=== PATIENT | female | born 1985 | race Caucasian/White ===

== ENCOUNTER 2017-04-11 17:15 | Inpatient (IN) | payer OTHER ==
[~2017-04-11] VITALS: Ht 152.4 cm; Wt 50.8 kg
[~2017-04-11 17:15] MED LIST: DOXY100; SULF-154 PO
[2017-04-11 17:16] VITALS: BP 159/104; PULSE 94; RESP 20; TEMP 98.1; O2SAT 99
--- NOTE | 2017-04-11 18:09 | PD ---
HPI Chief Complaint: Psychiatric Symptoms Time Seen by Provider: 17:30 Travel History International Travel<30 days: No Contact w/Intl Traveler<30days: No Traveled to known affect area: No History of Present Illness HPI Patient is a 31-year-old female presenting to the emergency department voluntarily for psychiatric evaluation. Patient reports, increased anxiety, depression, suicidal ideations. She states that she purchased antifreeze and needles and attempted to inject it but got scared. Sister is present and states that she's had increased anger issues, increased anxiety, paranoia, hallucinations. Sister states that she had her last child 3 years ago she's had a downward trend of depression, anxiety. It is due to that the patient started using IV methamphetamines 8 months after her son was performed. Patient has been clean for several months now. She admits to feeling overwhelmed and anxious she reports sleeping outside of her home because she is too scared to be insight. She reports that she sees rats her home that she knows are not there. She was followed by [facility], they prescribed Adderall which since she has started taking it has increased her anxiety. She was also prescribed Risperdal which she does not like to take because if she doesn't fall asleep immediately exacerbates her symptoms. Patient had her children taken away DCF due to unsafe living conditions. Per her sister's report she started hoarding. PFSH Past Medical History Anxiety: Yes Depression: Yes Diminished Hearing: No : 4 Para: 3 Miscarriage: 0 : 1 Ectopic : No Ovarian Cysts: No Past Surgical History Surgical History: No Previous Surgery Social History Alcohol Use: No Tobacco Use: No Substance Use: Yes (CRYSTAL METH CLEAN FOR THE LAST 3 MONTHS. JUST DISCHARGED FROM TREATMENT CENTER) Allergies-Medications (Allergen,Severity, Reaction): Coded Allergies: No Known Allergies (Verified , 04/11/17) Reported Meds & Prescriptions Reported Meds & Active Scripts Active Septra Ds (Trimethoprim/Sulfamethoxazole) Tab 1 Tab PO BID 10 Days Reported Vibramycin 100 Mg Cap (Doxycycline Hyclate) 100 Mg Cap 100 Mg .XX Physical Exam Narrative GENERAL: An, well-developed, alert female. Appears anxious, in no acute distress. SKIN: Focused skin assessment warm/dry. HEAD: Atraumatic. Normocephalic. EYES: Pupils equal and round. No scleral icterus. No injection or drainage. ENT: No nasal bleeding or discharge. Mucous membranes pink and moist. NECK: Trachea midline. No JVD. CARDIOVASCULAR: Regular rate and rhythm. No murmur appreciated. RESPIRATORY: No accessory muscle use. Clear to auscultation. Breath sounds equal bilaterally. GASTROINTESTINAL: Abdomen soft, non-tender, nondistended. Hepatic and splenic margins not palpable. MUSCULOSKELETAL: No obvious deformities. No clubbing. No cyanosis. No edema. NEUROLOGICAL: Awake and alert. No obvious cranial nerve deficits. Motor grossly within normal limits. Normal speech. PSYCHIATRIC: Anxious mood and affect; insight and judgment normal. Data Data Last Documented VS Vital Signs Date Time Temp Pulse Resp B/P Pulse Ox O2 Delivery O2 Flow Rate FiO2 04/11/17 20:15 84 16 98 04/11/17 17:16 98.1 159/104 Orders Complete Blood Count With Diff (04/11/17 17:44) Comprehensive Metabolic Panel (04/11/17 17:44) Thyroid Stimulating Hormone (04/11/17 17:44) Urinalysis - C+S If Indicated (04/11/17 17:44) Ed Urine Pregnancytest Poc (04/11/17 17:44) Psych Screen (04/11/17 17:44) Drug Screen, Random Urine (04/11/17 17:44) Alcohol (Ethanol) (04/11/17 17:44) Salicylates (Aspirin) (04/11/17 17:44) Tylenol (Acetaminophen) (04/11/17 17:44) Free Thyroxine (T4) (04/11/17 17:44) Diet Regular Basic (04/11/17 Dinner) Labs Laboratory Tests Test 04/11/17 04/11/17 18:55 19:03 Urine Color LIGHT-YELLOW Urine Turbidity CLEAR Urine pH 6.5 Urine Specific [place] 1.005 Urine Protein NEG mg/dL Urine Glucose (UA) NEG mg/dL Urine Ketones NEG mg/dL Urine Occult Blood LARGE Urine Nitrite NEG Urine Bilirubin NEG Urine Urobilinogen LESS THAN 2.0 MG/DL Urine Leukocyte Esterase NEG Urine RBC 6 /hpf Urine WBC 3 /hpf Urine Squamous Epithelial 1 /hpf Cells Urine Amorphous Sediment RARE Urine Bacteria OCC /hpf Microscopic Urinalysis Comment CULT NOT INDICATED White Blood Count 5.7 TH/MM3 Red Blood Count 3.87 MIL/MM3 Hemoglobin 12.4 GM/DL Hematocrit 36.9 % Mean Corpuscular Volume 95.4 FL Mean Corpuscular Hemoglobin 32.1 PG Mean Corpuscular Hemoglobin 33.7 % Concent Red Cell Distribution Width 14.4 % Platelet Count 309 TH/MM3 Mean Platelet Volume 9.2 FL Neutrophils (%) (Auto) 43.2 % Lymphocytes (%) (Auto) 42.6 % Monocytes (%) (Auto) 8.9 % Eosinophils (%) (Auto) 4.4 % Basophils (%) (Auto) 0.9 % Neutrophils # (Auto) 2.5 TH/MM3 Lymphocytes # (Auto) 2.4 TH/MM3 Monocytes # (Auto) 0.5 TH/MM3 Eosinophils # (Auto) 0.2 TH/MM3 Basophils # (Auto) 0.0 TH/MM3 CBC Comment DIFF FINAL Differential Comment Sodium Level 138 MEQ/L Potassium Level 3.6 MEQ/L Chloride Level 102 MEQ/L Carbon Dioxide Level 29.1 MEQ/L Anion Gap 7 MEQ/L Blood Urea Nitrogen 18 MG/DL Creatinine 0.63 MG/DL Estimat Glomerular Filtration 110 ML/MIN Rate Random Glucose 96 MG/DL Calcium Level 9.1 MG/DL Total Bilirubin 0.1 MG/DL Aspartate Amino Transf 13 U/L (AST/SGOT) Alanine Aminotransferase 20 U/L (ALT/SGPT) Alkaline Phosphatase 97 U/L Total Protein 6.7 GM/DL Albumin 3.4 GM/DL Free Thyroxine 0.80 NG/DL Thyroid Stimulating Hormone 0.265 uIU/ML 3rd Gen Salicylates Level LESS THAN 1.7 MG/DL Acetaminophen Level LESS THAN 2.0 MCG/ML Ethyl Alcohol Level LESS THAN 3 MG/DL MDM Medical Decision Making Medical Screen Exam Complete: Yes Emergency Medical Condition: Yes Interpretation(s) Laboratory Tests Test 04/11/17 04/11/17 18:55 19:03 Urine Color LIGHT-YELLOW Urine Turbidity CLEAR Urine pH 6.5 Urine Specific [place] 1.005 Urine Protein NEG mg/dL Urine Glucose (UA) NEG mg/dL Urine Ketones NEG mg/dL Urine Occult Blood LARGE Urine Nitrite NEG Urine Bilirubin NEG Urine Urobilinogen LESS THAN 2.0 MG/DL Urine Leukocyte Esterase NEG Urine RBC 6 /hpf Urine WBC 3 /hpf Urine Squamous Epithelial 1 /hpf Cells Urine Amorphous Sediment RARE Urine Bacteria OCC /hpf Microscopic Urinalysis Comment CULT NOT INDICATED White Blood Count 5.7 TH/MM3 Red Blood Count 3.87 MIL/MM3 Hemoglobin 12.4 GM/DL Hematocrit 36.9 % Mean Corpuscular Volume 95.4 FL Mean Corpuscular Hemoglobin 32.1 PG Mean Corpuscular Hemoglobin 33.7 % Concent Red Cell Distribution Width 14.4 % Platelet Count 309 TH/MM3 Mean Platelet Volume 9.2 FL Neutrophils (%) (Auto) 43.2 % Lymphocytes (%) (Auto) 42.6 % Monocytes (%) (Auto) 8.9 % Eosinophils (%) (Auto) 4.4 % Basophils (%) (Auto) 0.9 % Neutrophils # (Auto) 2.5 TH/MM3 Lymphocytes # (Auto) 2.4 TH/MM3 Monocytes # (Auto) 0.5 TH/MM3 Eosinophils # (Auto) 0.2 TH/MM3 Basophils # (Auto) 0.0 TH/MM3 CBC Comment DIFF FINAL Differential Comment Sodium Level 138 MEQ/L Potassium Level 3.6 MEQ/L Chloride Level 102 MEQ/L Carbon Dioxide Level 29.1 MEQ/L Anion Gap 7 MEQ/L Blood Urea Nitrogen 18 MG/DL Creatinine 0.63 MG/DL Estimat Glomerular Filtration 110 ML/MIN Rate Random Glucose 96 MG/DL Calcium Level 9.1 MG/DL Total Bilirubin 0.1 MG/DL Aspartate Amino Transf 13 U/L (AST/SGOT) Alanine Aminotransferase 20 U/L (ALT/SGPT) Alkaline Phosphatase 97 U/L Total Protein 6.7 GM/DL Albumin 3.4 GM/DL Free Thyroxine 0.80 NG/DL Thyroid Stimulating Hormone 0.265 uIU/ML 3rd Gen Salicylates Level LESS THAN 1.7 MG/DL Acetaminophen Level LESS THAN 2.0 MCG/ML Ethyl Alcohol Level LESS THAN 3 MG/DL Vital Signs Date Time Temp Pulse Resp B/P Pulse Ox O2 Delivery O2 Flow Rate FiO2 04/11/17 20:15 84 16 98 04/11/17 17:16 98.1 94 20 159/104 99 Differential Diagnosis Mood disorder versus substance abuse or suicidal ideations versus psychosis versus other Narrative Course Patient is a 31-year-old female presenting to emergency with her sister for psychiatric evaluation. Patient has had increasing thoughts of suicide, she has the means and a plan in place in which to perform the act. Patient's vital signs are stable, Mental health screening discussed with the patient. Psychiatric screen ordered. Patient was placed under Grewal act. Labs reviewed and there are no acute issues identified. Thyroid panel should be reassessed by primary care Nicotine patch ordered Patient is medically clear for psychiatric evaluation Diagnosis Primary Impression: Medical clearance for psychiatric admission Additional Impression: Suicidal ideations Condition: Stable Sue Mcclendon Apr 11, 2017 18:09
[2017-04-11 19:30] LABS: AUTOMATED NEUTROPHIL # 2.5 TH/MM3 (1.8-7.7); BASOPHIL % 0.9 % (0.0-2.0); EOSINOPHIL # 0.2 TH/MM3 (0-0.4); EOSINOPHIL % 4.4 % (0.0-4.0); HEMATOCRIT 36.9 % (35.0-46.0); HEMO FLAGS DIFF FINAL; LYMPH % 42.6 % (9.0-44.0); LYMPHOCYTE # 2.4 TH/MM3 (1.0-4.8); MEAN CELL VOLUME 95.4 FL (80.0-100.0); MEAN CORPUSCULAR HEMOGLOBIN 32.1 PG (27.0-34.0); MEAN CORPUSCULAR HGB CONC 33.7 % (32.0-36.0); MONO % 8.9 % (0.0-8.0); NEUT % 43.2 % (16.0-70.0); PLATELET COUNT 309 TH/MM3 (150-450); RED BLOOD COUNT 3.87 MIL/MM3 (4.00-5.30); RED CELL DISTRIBUTION WIDTH 14.4 % (11.6-17.2); WHITE BLOOD COUNT 5.7 TH/MM3 (4.0-11.0)
[2017-04-11 19:31] LABS: BACTERIA, URINE OCC /hpf; BLOOD, URINE LARGE (NEG); COMMENT (UR) CULT NOT INDICATED; CULTURE IF INDICATED CULT NOT INDICATED; GLUCOSE,URINE NEG (NEG); KETONE, URINE NEG (NEG); NITRITE,URINE NEG (NEG); PH, URINE 6.5 (5.0-8.5); SQUAMOUS EPITHELIAL CELL URINE 1 /hpf (0-5); URINE COLOR LIGHT-YELLOW (YELLW/STRAW)
[2017-04-11 19:49] LABS: ALT (GPT) 20 U/L (10-53); AST (GOT) 13 U/L (15-37); BICARBONATE 29.1 MEQ/L (21.0-32.0); BLOOD UREA NITROGEN 18 MG/DL (7-18); GLOMERULAR FILTRATION RATE 110 ML/MIN (>89)
[2017-04-11 20:15] VITALS: PULSE 84; RESP 16; O2SAT 98
[2017-04-11 20:24] LABS: ACETAMINOPHEN LESS THAN 2.0 MCG/ML (10.0-30.0); ALKALINE PHOSPHATASE 97 U/L (45-117); ANION GAP 7 MEQ/L (5-15); CHLORIDE 102 MEQ/L (98-107); POTASSIUM 3.6 MEQ/L (3.5-5.1); SODIUM (NA) 138 MEQ/L (136-145); TOTAL BILIRUBIN ADULT 0.1 MG/DL (0.2-1.0)
[2017-04-11] MEDS ORDERED: NICOTINE 14 MG/24 HR PATCH T-DERMAL ONE (20:45)
[2017-04-11 21:49] VITALS: BP 125/65; PULSE 73; RESP 16; O2SAT 99
[2017-04-11] MEDS ORDERED: diphenhydrAMINE HCL 50 MG CAP PO ONE (22:00)
[2017-04-12 00:23] VITALS: BP 131/87; PULSE 67; RESP 18; TEMP 98; O2SAT 100
[2017-04-12 00:30] LABS: AMPHETAMINE, URINE NEG (NEG); BARBITURATES, URINE NEG (NEG); COCAINE, URINE NEG (NEG)
[2017-04-12 02:08] VITALS: BP 114/71; PULSE 67; RESP 18; TEMP 98.1; O2SAT 98
[2017-04-12 06:01] VITALS: BP 106/55; PULSE 69; RESP 18; TEMP 98.8; O2SAT 98
[2017-04-12 10:44] VITALS: BP 94/60; PULSE 69; RESP 16; O2SAT 98
[2017-04-12] MEDS ORDERED: LORazepam 0.5 MG TAB PO PRN (13:15)
[2017-04-12] MEDS ORDERED: MAGNESIUM HYDROXIDE SUSP 30 ML CUP PO PRN (13:15)
[2017-04-12] MEDS ORDERED: ALUMINUM/MAGNESIUM/SIMETH 30 ML CUP PO PRN (13:15)
[2017-04-12] MEDS ORDERED: LORazepam 2 MG/ML VIAL IM PRN ×2 (13:15)
[2017-04-12 15:06] VITALS: BP 108/67; PULSE 80; RESP 18; TEMP 98.3; O2SAT 98
[2017-04-12] MEDS: NICOTINE 21 MG/24 HR PATCH T-DERMAL SCH (15:34)
[2017-04-12] MEDS: REMOVE OLD NICODERM (NICOTINE) PATCH T-DERMAL SCH (21:00)
[2017-04-12] MEDS: LORazepam 1 MG TAB PO PRN (21:49)
[2017-04-13 06:03] VITALS: BP 113/65; PULSE 59; RESP 18; TEMP 97.6; O2SAT 96
[2017-04-13] MEDS: NICOTINE 21 MG/24 HR PATCH T-DERMAL SCH (09:00)
[2017-04-13] MEDS: LORazepam 1 MG TAB PO PRN (12:19)
[2017-04-13 13:06] LABS: HEMOGLOBIN A1a 1.5 %; HEMOGLOBIN A1b 1.6 %; HEMOGLOBIN Ao 85.5 %; HEMOGLOBIN LA1C 1.8 %; HEMOGLOBIN P3 3.5 %
[2017-04-13 13:07] LABS: ANION GAP 9 MEQ/L (5-15); BICARBONATE 26.5 MEQ/L (21.0-32.0); CHLORIDE 102 MEQ/L (98-107); GLOMERULAR FILTRATION RATE 114 ML/MIN (>89); POTASSIUM 4.7 MEQ/L (3.5-5.1); SODIUM (NA) 137 MEQ/L (136-145)
[2017-04-13 13:09] LABS: BLOOD UREA NITROGEN 15 MG/DL (7-18)
[2017-04-13 13:10] LABS: HDL CHOLESTEROL 58.2 MG/DL (40.0-60.0); LDL CHOLESTEROL 71 MG/DL (0-99)
--- NOTE | 2017-04-13 14:23 | HHI.HP ---
Provisional Diagnosis Admission Date Apr 12, 2017 at 13:14 [place]. Adjustment disorder with mixed disturbance of emotion and conduct. Certification of Person's Competence To Provide Express and Informed Consent I have personally examined Lilia Samuel , a person being served at [facility] on, Apr 13, 2017 14:18. Express and informed consent means consent voluntarily given in writing, by a competent person, after sufficient explanation and disclosure of the subject matter involved to enable the person to make a knowing and willful decision without any element of force, fraud, deceit, duress, or other form of constraint or coercion. This person is 18 years of age or older, is not now known to be incompetent to consent to treatment with a guardian advocate, and does not have a health care surrogate or proxy currently making medical treatment decisions. I have found this person to be one of the following: [x] Competent to provide express and informed consent, as defined above, for voluntary admission to this facility and is competent to provide express and informed consent for treatment. He/she has the consistent capacity to make well reasoned, willful, and knowing decisions concerning his or her medical or mental health treatment. The person fully and consistently understands the purpose of the admission for examination/placement and is fully capable of personally exercising all rights assured [place] Incompetent to provide express and informed consent to voluntary admission, and this is incompetent to provide express and informed consent to treatment. The person must be transferred to involuntary status and a petition for a guardian advocate filed with the Circuit Court. [] Refusing to provide express and informed consent to voluntary admission but is competent to provide express and informed consent for treatment. The person must be discharged or transferred to involuntary status. Form shall be completed within 24 hours of a person's arrival at the receiving facility and filed in the clinical record of each person: 1. Admitted on a voluntary basis 2. Permitted to provide express and informed consent to his/her own treatment 3. Allowed to transfer from involuntary to voluntary status 4. Prior to permitting a person to consent to his or her own treatment after having been previously found incompetent to consent to treatment. History of Present Illness Capacity: Has Capacity HPI 31-year-old former IV drug addict who "slipped" after her children were born and began using IV drugs again. She also reports losing her children due to unsafe living conditions. At thisPatient complains of auditory and visual hallucinations but does not appear to be responding to internal stimuli. Patient reports suicidal plans of injecting her blood vessels with antifreeze but this is felt to be manipulative. point she states she has been clean and sober for several months. However she describes multiple symptoms of depression and suicidal ideation. She also happens to be homeless. Review of Systems Except as stated in HPI: all other systems reviewed are Neg Past Psych History Psychological trauma history Laced on Risperdal and antidepressant medication in the past. Patient complains of auditory and visual hallucinations but does not appear to be responding to internal stimuli. Patient reports suicidal plans of injecting her blood vessels with antifreeze but this is felt to be manipulative. Violence risk - others (6 mos) Minimal Violence risk - self (6 mos) Moderate Substance Abuse History Drugs/Alcohol past 12 months Multiyear history of substance abuse. IV drugs included. Past Family Social History Coded Allergies: No Known Allergies (Verified , 04/11/17) Discontinued Reported Medications Doxycycline Hyclate (Vibramycin 100 Mg Cap)100 Mg [id number] Mg .XX 11/17/11 Discontinued Scripts Sulfamethoxazole-Trimethoprim (Septra Ds) Tab1 Tab PO BID 10 Days Prov:EMMIE GARCIA WKeial DKeilaO. 11/17/11 Current Medications Medications (Trade) Dose Ordered Sig/Nash Route Start Time Stop Time Status Last Admin (Ativan) 1 mg Q6H PRN PO 04/12/17 13:15 04/13/17 12:19 (Ativan Inj) 1 mg Q6H PRN IM 04/12/17 13:15 (Ativan) 0.5 mg Q12H PRN PO 04/12/17 13:15 04/12/17 15:34 (Ativan Inj) 0.5 mg Q12H PRN IM 04/12/17 13:15 (Tylenol) 650 mg Q4H PRN PO 04/12/17 13:15 (Milk Of Magnesia Liq) 30 ml DAILY PRN PO 04/12/17 13:15 (Mag-Al Plus Susp Liq) 30 ml Q6H PRN PO 04/12/17 13:15 (Habitrol 21 Mg Patch.24 Hr) 1 patch DAILY T-DERMAL 04/12/17 14:00 04/13/17 09:00 Miscellaneous Information 1 HS T-DERMAL 04/12/17 21:00 Family History Reportedly positive for mood and anxiety disorders. Social History Homeless. Unemployed. Lost her children to DCF. Patient's Strengths (min. 2) Verbal and has access to healthcare. Physical Exam GENERAL: SKIN: Warm and dry. HEAD: Normocephalic. EYES: No scleral icterus. No injection or drainage. NECK: Supple, trachea midline. No JVD or lymphadenopathy. CARDIOVASCULAR: Regular rate and rhythm without murmurs, gallops, or rubs. RESPIRATORY: Breath sounds equal bilaterally. No accessory muscle use. GASTROINTESTINAL: Abdomen soft, non-tender, nondistended. MUSCULOSKELETAL: No cyanosis, or edema. BACK: Nontender without obvious deformity. No CVA tenderness. Vital Signs Vital Signs Date Time Temp Pulse Resp B/P Pulse Ox O2 Delivery O2 Flow Rate FiO2 04/13/17 06:03 97.6 59 18 113/65 96 04/12/17 10:44 Room Air Mental Status Examination Speech: Unremarkable Orientation: x3 Memory: Unremarkable Thought Process: Organized, Goal Directed Thought Content: Unremarkable Hallucination Type: None Attention and Concentration: Good Suicidal Ideation: No Previous Suicide Attempts: No Homicidal Ideation: No Previous Homicide Attempts: No Insight: Fair Judgment: WNL Affect: Good Mood: Appropriate Motor Activity: Normal gait Assessment & Plan Problem List: (1) Adjustment disorder with mixed disturbance of emotions and conduct ICD Code: F43.25 Assessment & Plan Estimated LOS: days this physician feels patient is manipulative and wanted to come into the hospital because she is homeless. She is immediately asking for Ativan. She will be started on Wellbutrin. Demetrius Quick MD Apr 13, 2017 14:23
[2017-04-13] MEDS: buPROPion HCL 150 MG SUSTAINED RELEASE TAB PO SCH (15:45)
[2017-04-13 18:07] VITALS: BP 98/57; PULSE 85; RESP 18; TEMP 98; O2SAT 98
[2017-04-13] MEDS ORDERED: traZODone HCL 100 MG TAB PO SCH (21:00)
[2017-04-13] MEDS: REMOVE OLD NICODERM (NICOTINE) PATCH T-DERMAL SCH (21:00)
[2017-04-13] MEDS: ACETAMINOPHEN 325 MG TAB PO PRN (21:50)
[2017-04-14 05:45] VITALS: BP 109/56; PULSE 66; RESP 18; TEMP 98.2
[2017-04-14] MEDS: NICOTINE 21 MG/24 HR PATCH T-DERMAL SCH (08:34)
[2017-04-14] MEDS: buPROPion HCL 150 MG SUSTAINED RELEASE TAB PO SCH (08:34)
[2017-04-14] MEDS: LORazepam 1 MG TAB PO PRN (09:04)
[2017-04-14] MEDS: ACETAMINOPHEN 325 MG TAB PO PRN (09:05)
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
[2017-04-14 15:54] VITALS: BP 102/56; PULSE 87; RESP 18; TEMP 98.7; O2SAT 98
[2017-04-14] MEDS: hydrOXYzine HCL 50 MG TAB PO PRN (16:19)
[2017-04-14] MEDS ORDERED: QUEtiapine FUMARATE 25 MG TAB PO SCH (21:00)
[2017-04-14] MEDS: REMOVE OLD NICODERM (NICOTINE) PATCH T-DERMAL SCH (21:00)
[2017-04-15 06:31] VITALS: BP 101/58; PULSE 74; RESP 16; TEMP 98.2; O2SAT 99
[2017-04-15] MEDS: buPROPion HCL 150 MG SUSTAINED RELEASE TAB PO SCH (08:44)
[2017-04-15] MEDS: NICOTINE 21 MG/24 HR PATCH T-DERMAL SCH (08:45)
--- NOTE | 2017-04-15 09:12 | RADRPT ---
EXAM DATE/TIME: 04/15/2017 08:20 [facility] COMPARISON: CT BRAIN W/O CONTRAST, January 19, 2007, 14:14. INDICATIONS : Psychosis. Patient is seeing rats. MEDICAL HISTORY : Anxiety, PTSD SURGICAL HISTORY : None. ENCOUNTER: Subsequent ACUITY: 3 day PAIN SCORE: 0/10 LOCATION: cranial TECHNIQUE: Multiplanar, multisequence MRI of the brain was performed without contrast. FINDINGS: CEREBRUM: The ventricles are normal for age. No evidence of midline shift, mass lesion, hemorrhage or acute in farction. No extraaxial fluid collections are seen. The pituitary gland and suprasellar cistern are normal in configuration. WHITE MATTER: No significant signal abnormalities are seen in the white matter. POSTERIOR FOSSA: The cerebellum and brainstem are intact. The 4th ventricle is midline. The cerebellopontine angle is unremarkable. The cerebellar tonsils are normal in position. DIFFUSION IMAGING: No focal areas of restricted diffusion are seen. No evidence of acute infarction. EXTRACRANIAL: The visualized portions of the orbits and paranasal sinuses are unremarkable. CONCLUSION: Normal examination for a patient of this age. Mahendra Armenta MD on April 15, 2017 at 9:09 Board Certified Radiologist. This report was verified electronically.
[2017-04-15] MEDS ORDERED: BUPR150CR PO (11:43)
[2017-04-15] MEDS ORDERED: HYDR50TA94 PO (11:43)
[2017-04-15] MEDS ORDERED: QUET1TAB7 PO (11:43)
--- NOTE | 2017-04-15 11:44 | HHI.DS ---
Psychiatry Discharge Summary Inpatient Psychiatric care?: Yes Advance Directive: No Reason Not Provided: REFUSED Mental Health AdvanceDirective: No Health Care Proxy: No Admission Admission Date Apr 12, 2017 at 13:14 Admission Diagnosis: (1) Adjustment disorder with mixed disturbance of emotions and conduct ICD Code: F43.25 Brief History 31-year-old former IV drug addict who "slipped" after her children were born and began using IV drugs again. She also reports losing her children due to unsafe living conditions. At thisPatient complains of auditory and visual hallucinations but does not appear to be responding to internal stimuli. Patient reports suicidal plans of injecting her blood vessels with antifreeze but this is felt to be manipulative. point she states she has been clean and sober for several months. However she describes multiple symptoms of depression and suicidal ideation. She also happens to be homeless. Tobacco Use In Past 30 Days: 5 or More Cigarettes/Day Alcohol Use: Monthly or Less Hospital Course Patient was admitted to a locked, inpatient psychiatric unit. Appropriate precautions were in place throughout patient's hospital stay. Patient was seen and examined daily on the unit by psychiatry and also visited by counselor. Psychotropic medications were adjusted. Patient had improvement in presenting psychiatric symptomatology during the course of her hospital stay. There was no evidence of any suicidality or homicidality on the inpatient unit. On the day of discharge: Patient seen and examined with nurse. Chart reviewed. Case discussed with nursing staff. Patient has been no behavioral problem overnight. On my examination today, the patient is requesting discharge from the inpatient psychiatric unit today. She is quite concerned about making it to a court appearance on Tuesday morning; counselor has offered to write a letter to the court explaining that patient was in the hospital, but patient wishes to be present for this court date. Presently she denies any suicidal or homicidal ideation, intent or plan. She contracts for safety and says that she would never allow herself to self injure because "I have 4 boys who need their mom." She is future oriented. She denies any issues with mood and I can elicit no depressive or hypomanic/manic symptoms. She denies any audiovisual hallucinations, and I can elicit no delusional beliefs. She denies side effects from medications and slept much better with the Seroquel. She also feels that the Atarax is working well for anxiety. She has no physical complaints. Weighing the acute, chronic, and protective factors and based on the available evidence, I tribal judge to a reasonable degree of medical certainty that the patient is at low imminent risk of harm to self or others from a mental illness as defined under the [place] act and her level of function is adequate for outpatient care. Consequently, the patient does not meet criteria for involuntary psychiatric hospitalization. I strongly recommended that she remain on the unit for further observation, but she has declined. I have explained that she has some laboratories that are outstanding, including the [facility] , and she will need to follow up on these. I have counseled the patient to abstain from substances of abuse. I've counseled the patient regarding warning signs for need to return to the psychiatric emergency room as part of a general safety plan. Given that the patient does not meet criteria for involuntary psychiatric hospitalization and given that she is requesting discharge from the unit today, I must arrange for her discharge psychiatric follow-up as arranged by counselor. Patient is also to follow-up with primary care, and I have ordered a blue card to allow the patient to follow-up in the community clinic. Results Blood Pressure 101 / 58 Vital Signs Date Time Temp Pulse Resp B/P Pulse Ox O2 Delivery O2 Flow Rate FiO2 04/15/17 06:31 98.2 74 16 101/58 99 04/12/17 10:44 Room Air Laboratory Tests Test 04/13/17 04/15/17 11:30 10:49 Random Glucose 73 MG/DL (74-106) Ammonia 33 MCMOL/L (11-32) Laboratory Results Test 04/13/17 11:30 Hemoglobin A1c 5.6 % (4.3-6.0) Triglycerides Level 64 MG/DL (42-150) Cholesterol Level 142 MG/DL (120-200) LDL Cholesterol 71 MG/DL (0-99) HDL Cholesterol 58.2 MG/DL (40.0-60.0) Summary of Procedures None done Imaging Last Impressions Brain MRI 04/15/17 0000 Signed Impressions: Service Date/Time: Saturday, April 15, 2017 08:20 - CONCLUSION: Normal examination for a patient of this age. Mahendra Armenta MD Pending results at discharge: No Medications # of Antipsychotic meds at D/C: 1 Approp Antipsych med options 1 - Minimum of three failed multiple trials of monotherapy. 2 - Documented plan to taper to monotherapy due to previous use of multiple meds OR cross-taper in progress at D/C. 3 - Documentation of augmentation of Clozapine. 4 - Justification other than those listed in allowable values 1-3, document here : Discharge Discharge Date: Apr 15, 2017 Discharge Diagnosis: (1) Adjustment disorder with mixed disturbance of emotions and conduct Diagnosis: Principal (resolved) ICD Code: F43.25 GAF on discharge is 60. Mental Status Exam at Disch Patient is casually dressed. She is well groomed. She is awake and alert and oriented 3. No evidence of delirium. No motor abnormalities noted. Speech is within normal limits for rate, tone and volume. Language and fund of knowledge seem average. Focus and concentration intact. Memory grossly intact on clinical exam. Mood is reportedly stable and affect is full and reactive. Thought process linear. No loosening of associations. No evident delusional material. Denies audiovisual hallucinations. Denies suicidal or homicidal ideation, intent or plan. Insight and judgment are fair. Pt Condition on Discharge: Stable Discharge Disposition: Discharge Home Discharge Instructions Diet Instructions: As Tolerated, No Restrictions Activities you can perform: Weight Bearing as Curtis Scheduled Appointment: as per counselor's notes New Medications: Bupropion HCl ER 12 HR (Wellbutrin SR 12 HR) 150 Mg Tab 150 MG PO DAILY Mental Health Days 15 Ref 1 TAB Hydroxyzine HCl (Hydroxyzine HCl) 50 Mg Tab 50 MG PO Q6H PRN ANXIETY #15 Ref 1 TAB Quetiapine (Quetiapine) 25 Mg Tab 50 MG PO HS Mental Health Days 15 Ref 1 TAB Discharge Time > 30 minutes Discharge/Advance Care Plan Health Problems: (1) Adjustment disorder with mixed disturbance of emotions and conduct Goals to promote your health * To prevent worsening of your condition and complications * To maintain your health at the optimal level Directions to meet your goals Take your medications as prescribed Follow your dietary instruction Follow activity as directed Keep your appointments as scheduled Take your immunizations and boosters as scheduled If your symptoms worsen call your PCP, if no PCP go to Urgent Care Center or Emergency Room For / questions related to your inpatient stay or results of tests pending at discharge, please contact Dr. Nick Amaya at Smoking is Dangerous to Your Health. Avoid second hand smoking Nick Amaya MD Apr 15, 2017 11:43
[2017-04-15] MEDS: hydrOXYzine HCL 50 MG TAB PO PRN (13:44)
[2017-04-15 16:15] VITALS: BP 110/59; PULSE 99; RESP 18; TEMP 97.7; O2SAT 98
== END 2017-04-15 16:48 | disposition home or self-care (01) | DRG 882 ==
LOC: NEPD 17:15 → NEDA 04-12 13:14 → H260 04-12 14:30
PROVIDERS: ADMIT Psychiatry & Neurology Psychiatry; ATTEND Psychiatry & Neurology Psychiatry
DX: F43.25 Adjustment disorder with mixed disturbance of emotions and conduct (principal); R45.851 Suicidal ideations; Z59.0 Homelessness; Z91.410 Personal history of adult physical and sexual abuse; F41.9 Anxiety disorder, unspecified
CPT/HCPCS: 70551; 80048; 80053; 80061; 80307; 81001; 82140; 82607; 83036; 84439; 84443; 84703; 85025; 86592; 86703; Q0163